=== PATIENT | male | born 1970 | race Caucasian/White ===

== ENCOUNTER 2021-06-21 16:39 | Emergency (ER) | payer BC, OTHER ==
[2021-06-21 17:13] VITALS: BP 168/97; PULSE 103; TEMP 98.1; BMI 41.6
== END 2021-06-21 18:25 | disposition home or self-care (01) ==
LOC: JER 16:39
PROC: 3E0233Z Introduction of Anti-inflammatory into Muscle, Percutaneous Approach (ICD-10-PCS; principal; 2021-06-21)
DX: M54.6 Pain in thoracic spine (principal); U07.1 COVID-19
CPT/HCPCS: 99284-25